=== PATIENT | female | born 1985 | race Asian ===

== ENCOUNTER 2018-11-12 16:19 | Outpatient (CLI) | payer BC ==
[~2018-11-12] VITALS: Ht 165.1 cm; Wt 66.4 kg
--- NOTE | 2018-11-12 16:25 | NUR ---
Patient ambulatory onto unit with report of vaginal bleeding. Patient states bright red vaginal bleeding started at 1500. States "it isn't very heavy". Peripad that was in place had a small streak of bright red blood. Reports good movement, denies leaking of fluid or contractions. Patient changes into gown, plan of care discussed, questions answered. EFMs on, VS taken. SVE closed/50/-2, small amount of bright red blood on glove with exam. Admission assessment completed by Dilip REYNA. notified, orders received.
[2018-11-12 16:32] VITALS: BP 126/83; PULSE 68; TEMP 97.9
[2018-11-12] MEDS ORDERED: PRENATAL FORMU1 EAC3 PO (16:32)
--- NOTE | 2018-11-12 17:20 | NUR ---
CTX q2-3 minutes per toco, patient states that she has felt "a few" contractions but denies feeling regular/painful contractions. SVE with no change, scant amount of bleeding with exam. Discharge instructions reviewed.
[2018-11-16] MEDS ORDERED: IBU600 MG PO (11:36)
== END 2018-11-12 17:25 | disposition home or self-care (01) ==
LOC: LDRO 16:19
DX: O46.93 Antepartum hemorrhage, unspecified, third trimester (principal); Z3A.40 40 weeks gestation of pregnancy